=== PATIENT | male | born 1955 | race Caucasian/White ===

== ENCOUNTER 2016-04-15 05:32 | Day surgery (SDC) | payer OTHER ==
[~2016-04-15] VITALS: Ht 177.8 cm; Wt 101.8 kg
[2016-04-15] MEDS ORDERED: CEFAZOLIN 2 GM/50 ML (PMX) 50 ML IVPB SCH (07:00)
[2016-04-15] MEDS ORDERED: BUPIVACAINE 0.5% (SDV) 30 ML INJ ONE (07:00)
[2016-04-15] MEDS ORDERED: SOD CHLORIDE 0.9% 1,000 ML IV SCH (07:00)
[2016-04-15] MEDS ORDERED: LIDOCAINE 2% (MDV) 20 ML INJ ONE (07:00)
[2016-04-15] MEDS ORDERED: BUPIVACAINE 0.25% (MPF) 30 ML INJ ONE (07:00)
[2016-04-15 07:03] VITALS: Ht 177.8 cm; Wt 101.8 kg
[2016-04-15 07:04] VITALS: BP 163/91; PULSE 80; RESP 18
--- NOTE | 2016-04-15 07:06 | RADRPT ---
PROCEDURE: XR Chest. CLINICAL INDICATION: Preoperative evaluation prior to general anesthesia TECHNIQUE: Portable single view of the chest COMPARISON: None. FINDINGS: The cardiomediastinal silhouette appears within normal limits. The lungs are clear and no pleural e ffusion or significant edema is seen. No bony abnormality is seen. IMPRESSION: No definite acute pulmonary disease. RPTAT: [facility] Physician Adam Date Time Electronically viewed and signed by Fabiola Jang Physician on 04/15/2016 07:05 NALINI/
[2016-04-15] MEDS ORDERED: METO-448 PO (07:21)
[2016-04-15] MEDS ORDERED: LORA-186 PO (07:21)
[2016-04-15] MEDS ORDERED: LISI1TAB4 PO (07:21)
[2016-04-15] MEDS ORDERED: FENTAnyl 50 MCG/ML VIAL ONE (07:35)
[2016-04-15] MEDS ORDERED: MIDAZOLAM 1 MG/ML 2 ML INJ ONE (07:35)
[2016-04-15] MEDS ORDERED: KETOROLAC 30 MG INJ ONE (08:23)
[2016-04-15 08:45] VITALS: BP 124/71; PULSE 67; RESP 10
[2016-04-15 08:46] VITALS: BP 133/76; RESP 17
[2016-04-15 08:51] VITALS: BP 130/77; PULSE 64; RESP 15
[2016-04-15 08:53] VITALS: BP 122/77; PULSE 62; RESP 15
[2016-04-15] MEDS ORDERED: HYDROCODONE/APAP (5/325) TAB PO ONE (09:00)
--- NOTE | 2016-04-15 09:12 | OPR ---
DATE OF OPERATION: 04/15/2016 INDICATION: This is a 60-year-old male with multiple left arm masses. He requests surgical excisio n. Risks, alternatives, benefits, and personnel were discussed with the patient. The patient expre ssed his understanding and consents to the operation. PREOPERATIVE DIAGNOSIS: Left arm mass x3. POSTOPERATIVE DIAGNOSIS: Left arm mass x3. OPERATION PERFORMED: 1. Excision of left ventral upper forearm mass with a 4 cm size incision and 3 cm size mass. 2. Left upper arm mass excision with 5 cm size incision and 5 cm size mass. 3. Left dorsal forearm mass excision with a 4 cm size incision and 4 cm size mass. 4. Localized adjacent tissue transfer with the use of skin flaps. SURGEON: Keiko Cabrera MD SPECIMEN: Left arm masses x3. COMPLICATIONS: None. ANESTHESIA: MAC. DESCRIPTION OF PROCEDURE: The patient was taken to the OR and prepped and draped in the usual steri le fashion. Surgical time out was performed. IV antibiotics were given. The 3 surgical sites that were premarked in the preoperative holding were injected with local anesthesia. A transverse incis ion was made over each of the sites after local anesthesia was injected. Dissection cautery was car ried down to the masses and circumferentially dissected out. There was good hemostasis. All surgic al sites were closed with interrupted 3-0 Vicryl and skin gayla due to tissue defects. Localized adjacent tissue transfer with the use of skin flaps was used for closure. Dictated By: KEIKO LOWERY/JYOTI Conf#: [id number] DID#: [id number]
[2016-04-15] MEDS ORDERED: ONDANSETRON 4 MG INJ IV PRN (09:30)
[2016-04-15] MEDS ORDERED: METOCLOPRAMIDE 10 MG INJ IV PRN (09:30)
[2016-04-15 09:34] VITALS: BP 129/90; PULSE 62; RESP 18
--- NOTE | 2016-04-15 17:57 | RADRPT ---
Vent Rate: 66 bpm RR Interval: 0 msec MN Interval: 132 msec QRS Duration: 92 msec QT Interval: 406 msec QTC Interval: 425 msec P-R-T [place]: 52 - 61 - 48 degrees Normal sinus rhythm Normal ECG Electronically Signed By: Bruno Rubio [id number]
== END 2016-04-15 09:50 | disposition home or self-care (01) ==
LOC: SDS 05:32
PROVIDERS: ATTEND Surgery
DX: D17.22 Benign lipomatous neoplasm of skin and subcutaneous tissue of left arm (principal); I10 Essential (primary) hypertension; E66.9 Obesity, unspecified; Z68.32 Body mass index [BMI] 32.0-32.9, adult
CPT/HCPCS: 14020; 71010; 88304; 93005; J0690; J1885; J2250; J3010; Z7512; Z7610

== ENCOUNTER 2016-05-27 09:57 | Day surgery (SDC) | payer OTHER ==
[2016-05-24 18:54] VITALS: BMI 31.6
[~2016-05-27] VITALS: Ht 177.8 cm; Wt 102.0 kg
[2016-05-27] VITALS (7 sets, daily range): BP systolic 126–164; BP diastolic 72–90; PULSE 63–68; RESP 11–21; Ht 177.8 cm; Wt 102.0 kg
[~2016-05-27 09:57] MED LIST: CEFAZOLIN 1 GM INJ ONE; LISI1TAB4 PO; LORA-186 PO; METO-448 PO
[2016-05-27] MEDS ORDERED: CEFAZOLIN 2 GM/50 ML (PMX) 50 ML IVPB SCH (10:30)
[2016-05-27] MEDS ORDERED: SOD CHLORIDE 0.9% 1,000 ML IV SCH (10:30)
[2016-05-27] MEDS ORDERED: BUPIVACAINE 0.25% (MPF) 30 ML INJ ONE (13:48)
[2016-05-27] MEDS ORDERED: MIDAZOLAM 1 MG/ML 2 ML INJ ONE (14:00)
[2016-05-27] MEDS ORDERED: FENTAnyl 50 MCG/ML VIAL ONE (14:00)
[2016-05-27] MEDS ORDERED: LIDOCAINE 2% (MDV) 20 ML INJ ONE (14:13)
[2016-05-27] MEDS ORDERED: BUPIVACAINE 0.5% (SDV) 30 ML INJ ONE (14:13)
[2016-05-27] MEDS ORDERED: MEPERIDINE 25 MG INJ IV PRN (14:30)
[2016-05-27] MEDS ORDERED: DIPHENHYDRAMINE 50 MG INJ IV PRN (14:30)
[2016-05-27] MEDS ORDERED: HYDROmorphONE (0.2 MG/ML) 10ML SYG IV PRN ×3 (14:30)
[2016-05-27] MEDS ORDERED: FENTAnyl 50 MCG/ML VIAL IV PRN (14:30)
[2016-05-27] MEDS ORDERED: ONDANSETRON 4 MG INJ IV PRN (14:30)
[2016-05-27] MEDS ORDERED: HYDROCODONE/APAP (5/325) TAB PO ONE ×2 (15:00)
--- NOTE | 2016-05-27 16:57 | OPR ---
DATE OF OPERATION: 05/27/2016 INDICATION: This is a 60-year-old male with three left arm masses that he requests to be surgically removed. Risks, alternatives, benefits, and personnel were discussed with the patient. Patient ex pressed understanding and consents to the operation. PREOPERATIVE DIAGNOSIS: Left arm masses x3. POSTOPERATIVE DIAGNOSIS: Left arm masses x3. OPERATION PERFORMED: 1. Excision of left upper anterior arm mass with 4 cm size incision and 4 cm size mass. 2. Excision of left upper posterior arm mass with 5 cm in size incision and 5 cm size mass. 3. Left lower posterior arm mass excision with 3 cm size incision and 3 cm mass. 4. Localized adjacent tissue transfer with the use of skin flaps. SURGEON: Keiko Cabrera MD SPECIMEN: Left arm masses x3. COMPLICATIONS: None. ANESTHESIA: MAC. PROCEDURE: The patient was taken to the OR and prepped and draped in the usual sterile fashion. Cristobal rgical timeout was performed. IV antibiotics were given. Local anesthesia was injected into all pr eoperatively marked surgical sites in the left upper anterior and posterior and left lower posterior arm masses. Incision was made over all the mass with a 15 blade. Dissection cautery was carried d own to the mass and circumferentially excised. Due to the large tissue defect, localized adjacent t issue transfer with the use of skin flaps was performed. All incisions are closed with interrupted 3-0 Vicryl and skin gayla. Dry dressings were applied. Local anesthesia was injected at the begi nning of the case. Dictated By: KEIKO CABRERA MD SB/JYOTI Conf#: [id number] DID#: [id number]
== END 2016-05-27 15:55 | disposition home or self-care (01) ==
LOC: SDS 09:57
PROVIDERS: ATTEND Surgery
DX: D17.22 Benign lipomatous neoplasm of skin and subcutaneous tissue of left arm (principal)
CPT/HCPCS: 14301; 88307; J0690; J2250; J3010; Z7512; Z7610

== ENCOUNTER 2016-08-12 10:33 | Day surgery (SDC) | payer OTHER ==
[2016-08-12] VITALS (13 sets, daily range): BP systolic 119–145; BP diastolic 71–95; PULSE 60–78; RESP 14–22; Ht 180.3 cm; Wt 101.4 kg
[~2016-08-12] VITALS: Ht 180.3 cm; Wt 101.4 kg
[~2016-08-12 10:33] MED LIST changes: -CEFAZOLIN 1 GM INJ ONE; +CEFAZOLIN 2 GM/50 ML (PMX) 50 ML IVPB ONE; +SOD CHLORIDE 0.9% 1,000 ML IV ONE
[2016-08-12] MEDS ORDERED: ASPI81TA3 PO (11:16)
--- NOTE | 2016-08-12 11:58 | RADRPT ---
PROCEDURE: XR Chest. CLINICAL INDICATION: Preoperative. Abdominal mass. TECHNIQUE: Single frontal view. COMPARISON: 04/15/2016. FINDINGS: The lungs are clear. The heart size is normal. There is no pleural effusion. There is no pneumothorax. IMPRESSION: 1. Normal chest radiograph. RPTAT: QQ .Joesph Toledo MD, MD Date Time Electronically viewed and signed by .Joesph Toledo MD, MD on 08/12/2016 11:57 .R/
[2016-08-12] MEDS ORDERED: BUPIVACAINE 0.5% (SDV) 30 ML INJ ONE (12:27)
[2016-08-12] MEDS ORDERED: LIDOCAINE 1% (MPF) 30 ML INJ ONE (12:27)
[2016-08-12] MEDS ORDERED: MIDAZOLAM 1 MG/ML 2 ML INJ ONE (12:41)
--- NOTE | 2016-08-12 13:29 | OPR ---
Date/Time of Note Date/Time of Note DATE: 08/12/16 TIME: 13:25 Operative Report Procedure Date: Aug 12, 2016 Preoperative Diagnosis abdominal mass left arm mass x 2 Postoperative Diagnosis same Operation Performed excision of abdominal mass 10 cm incision and 10 cm mass excision of left posterior upper arm mass 5 cm incision 5 cm mass excision of left anterior lower arm mass 3 cm incision 3 cm mass localized adjacent tissue transfer with the use of skin flaps 36 sq cm defect therapeutic injection of subcutaneous marcaine Surgeon: Chato CHASE Specimens abdominal mass left upper and lower arm masses Procedure Description Patient was taken to the OR and prepped and draped in usual sterile fashion. Surgical timeout was performed IV antibiotics were given. Local anesthesia was infiltrated to all surgical sites. Transverse incision is made in the abdomen. Dissection cautery was carried out the mass was circumferentially excised. There is good hemostasis. Due to large tissue defect localized adjacent tissue transfer with the skin flaps was performed. Multilayer closure of interrupted 3 -0 Vicryl and running 4-0 Monocryl. Attention is paid to the left upper arm mass the posterior area. Transverse incision was made with a 15 blade. Dissection cautery was carried out the mass was circumferentially excised. There is good hemostasis. Due to large tissue defect localization to stress her with these of skin flaps was performed. Multilayer closure of interrupted 3 -0 Vicryl and running 4-0 Monocryl. Attention is paid to the left lower anterior mass. Transverse incision was made with a 15 blade. Dissection cautery recurrence of mass in circumference excised. Due to the large tissue defect localization should transfer to the skin flaps were performed to look closed with interrupted 3-0 Vicryl running 4-0 Monocryl. Dermabond was applied to all surgical sites. Chato CHASE Aug 12, 2016 13:29
[2016-08-12] MEDS ORDERED: ONDANSETRON 4 MG INJ IV PRN (13:30)
[2016-08-12] MEDS ORDERED: MEPERIDINE 25 MG INJ IV PRN (13:30)
[2016-08-12] MEDS ORDERED: FENTAnyl 50 MCG/ML VIAL IV PRN (13:30)
[2016-08-12] MEDS ORDERED: METOCLOPRAMIDE 10 MG INJ IV PRN (13:30)
[2016-08-12] MEDS ORDERED: HYDROCODONE/APAP (5/325) TAB PO ONE (13:30)
[2016-08-12] MEDS ORDERED: DIPHENHYDRAMINE 50 MG INJ IV PRN (13:30)
[2016-08-12] MEDS ORDERED: PROPOFOL 20 ML ONE (13:31)
[2016-08-12] MEDS ORDERED: LIDOCAINE 2% (SDV) 5 ML INJ ONE (13:31)
[2016-08-12] MEDS ORDERED: CEFAZOLIN 1 GM INJ ONE (13:32)
--- NOTE | 2016-08-15 11:06 | RADRPT ---
Vent Rate: 69 bpm RR Interval: 0 msec [place] Interval: 152 msec QRS Duration: 88 msec QT Interval: 422 msec QTC Interval: 452 msec P-R-T [place]: 54 - 60 - 32 degrees Sinus rhythm with occasional premature ventricular complexes Otherwise normal ECG Electronically Signed By: Deyvi Marshall [id number]
== END 2016-08-12 15:40 | disposition home or self-care (01) ==
LOC: SDS 10:33
PROVIDERS: ATTEND Surgery
DX: D17.1 Benign lipomatous neoplasm of skin and subcutaneous tissue of trunk (principal); D17.22 Benign lipomatous neoplasm of skin and subcutaneous tissue of left arm; I10 Essential (primary) hypertension; E66.9 Obesity, unspecified; Z68.31 Body mass index [BMI] 31.0-31.9, adult
CPT/HCPCS: 14301; 71010; 88307; 93005; J0690; J2250; J2405; J2765; J3010; Z7512; Z7610